=== PATIENT | male | born 1965 | race African-American/Black ===

== ENCOUNTER 2017-04-09 14:36 | Inpatient (IN) ==
[2017-04-09] MEDS ORDERED: SODIUM CHLORIDE 0.9% 500 ML IV STA (15:04)
[2017-04-09] MEDS ORDERED: ONDANSETRON 4 MG/2 ML VIAL IV STA ×2 (15:08→17:29)
[2017-04-09] MEDS ORDERED: HYDROmorphone 2 MG/1 ML VIAL IV STA ×2 (15:08→17:29)
[2017-04-09] MEDS ORDERED: HYDROmorphone 2 MG/1 ML VIAL ONE ×2 (15:12→17:16)
[2017-04-09] MEDS ORDERED: ONDANSETRON 4 MG/2 ML VIAL ONE ×2 (15:12→17:15)
[2017-04-09 15:33] LABS: Basophils % 0.6 % (0.0-0.8); Eosinophils # 0.1 10*3/uL (0.0-0.87); Eosinophils % 1.4 % (0.00-10.9); Hematocrit 33.9 VOL% (42.0-52.0); Hemoglobin 11.6 GM/DL (14.0-18.0); Immature Granulocytes % 0.2 %; Immature Granulocytes Absolute 0.01 #; Lymphocytes # 0.6 10*3/uL (1.4-4.0); Lymphocytes % 9.1 % (21.2-54.2); Mean Corpuscular HGB Conc 34.2 GM/DL (32-36); Mean Corpuscular Hemoglobin 32 PG (27-34); Mean Corpuscular Volume 94.7 FL (87-102); Mean Platelet Volume 9.9 FL (9.6-12.0); Monocytes # 0.5 10*3/uL (0.11-0.8); Monocytes % 7.9 % (1.7-12.7); Neutrophils # 5.1 10*3/uL (1.4-7.4); Neutrophils % 80.8 % (38.7-73.9); Platelet Count 169 T/CUMM (130-400); Red Blood Count 3.58 MC/CUMM (3.8-5.5); Red Cell Distribution Width 17.7 % (9.3-17.3); White Blood Count 6.4 T/CUMM (4-12)
[2017-04-09 16:27] LABS: Albumin 3.5 G/DL (3.4-5.0); Bilirubin,Total 0.9 MG/DL (0.2-1.0); Total Protein 7.2 G/DL (6.4-8.3)
[2017-04-09 16:28] LABS: Osmolality,Calculated 281.2 MOS/KG (273-304); Potassium 2.8 MMOL/L (3.5-5.1)
[2017-04-09] MEDS ORDERED: CALCIUM ACETATE 667 MG CAPSULE PO SCH (18:35)
[2017-04-09] MEDS ORDERED: POTASSIUM CHLORIDE 20 MEQ TABLET PO ONE (18:35)
[2017-04-09] MEDS ORDERED: GLUCAGON 1 MG VIAL IM PRN (18:35)
[2017-04-09] MEDS ORDERED: POTASSIUM CHLORIDE 20 MEQ TABLET PO PRN (18:35)
[2017-04-09] MEDS ORDERED: DEXTROSE 50% 25 GM/50 ML VIAL IV PRN (18:35)
[2017-04-09] MEDS: HYDROmorphone 2 MG/1 ML VIAL IV PRN (20:55)
[2017-04-09] MEDS: INSULIN LISPRO 100 UNIT/ML SUBCUT SCH (20:58)
[2017-04-09] MEDS: AMIODARONE 200 MG TABLET PO SCH (21:03)
[2017-04-09] MEDS: INSULIN GLARGINE 100 UNIT/ML SUBCUT SCH (21:03)
[2017-04-09] MEDS: LOVASTATIN 20 MG TABLET PO SCH (21:03)
[2017-04-10] MEDS: ONDANSETRON 4 MG/2 ML VIAL IV PRN (05:17)
[2017-04-10] MEDS: ACETAMINOPHEN 325 MG TABLET PO PRN (05:18)
[2017-04-10] MEDS: LEVOTHYROXINE 100 MCG TABLET PO SCH (05:28)
[2017-04-10] MEDS: cefTRIAXone 1,000 MG in SYRINGE 1 EACH IV SCH (05:29)
[2017-04-10 06:33] LABS: Basophils % 0.2 % (0.0-0.8); Eosinophils # 0.1 10*3/uL (0.0-0.87); Eosinophils % 0.5 % (0.00-10.9); Hematocrit 38.6 VOL% (42.0-52.0); Hemoglobin 12.7 GM/DL (14.0-18.0); Immature Granulocytes % 0.3 %; Immature Granulocytes Absolute 0.03 #; Lymphocytes # 0.3 10*3/uL (1.4-4.0); Lymphocytes % 2.4 % (21.2-54.2); Mean Corpuscular HGB Conc 32.9 GM/DL (32-36); Mean Corpuscular Hemoglobin 32 PG (27-34); Mean Corpuscular Volume 97.7 FL (87-102); Mean Platelet Volume 10.1 FL (9.6-12.0); Monocytes # 0.6 10*3/uL (0.11-0.8); Monocytes % 5.8 % (1.7-12.7); Neutrophils # 9.4 10*3/uL (1.4-7.4); Neutrophils % 90.8 % (38.7-73.9); Platelet Count 209 T/CUMM (130-400); Red Blood Count 3.95 MC/CUMM (3.8-5.5); Red Cell Distribution Width 17.7 % (9.3-17.3); White Blood Count 10.4 T/CUMM (4-12)
[2017-04-10 07:03] LABS: Calcium 8.3 MG/DL (8.5-10.1); Osmolality,Calculated 279.1 MOS/KG (273-304); Potassium 4.1 MMOL/L (3.5-5.1)
[2017-04-10 07:54] LABS: Hypochromasia 1+; Lymphocytes 2 % (20-55); Platelet Estimate Adequate; Segmented Neutrophils 92 % (50-85); Total Cells Counted 100
[2017-04-10 07:55] LABS: Microcytosis Slight
[2017-04-10] MEDS: INSULIN LISPRO 100 UNIT/ML SUBCUT SCH ×4 (09:07→20:47)
[2017-04-10] MEDS: HYDROmorphone 2 MG/1 ML VIAL IV PRN ×3 (09:12→18:46)
[2017-04-10] MEDS: INSULIN GLARGINE 100 UNIT/ML SUBCUT SCH ×2 (10:27→20:49)
[2017-04-10] MEDS: CALCIUM ACETATE 667 MG CAPSULE PO SCH ×3 (10:27→17:37)
[2017-04-10] MEDS: metroNIDAZOLE INJ 500 MG in PREMIX 1 EACH IV SCH ×2 (11:21→18:20)
[2017-04-10] MEDS ORDERED: DEXTROSE 5% NACL 0.45% 1,000 ML IV SCH (16:00)
[2017-04-10] MEDS: AMIODARONE 200 MG TABLET PO SCH ×2 (17:37→20:48)
[2017-04-10] MEDS: RIVAROXABAN 20 MG TABLET PO SCH (17:37)
[2017-04-10] MEDS: ALLOPURINOL 100 MG TABLET PO SCH (17:38)
[2017-04-10 18:32] LABS: Hepatitis A Ab IgM Quant 0.05 Index; Hepatitis A Ab IgM Result Negative (Negative); Hepatitis B Core IgM Quant 0.11 Index; Hepatitis B Core IgM Result Negative (Negative); Hepatitis B Surface Ag Quant < 0.10 Index; Hepatitis B Surface Ag Result Negative (Negative); Hepatitis C Virus Ab Quant 0.09 Index; Hepatitis C Virus Ab Result Negative (Negative)
[2017-04-10] MEDS: LOVASTATIN 20 MG TABLET PO SCH (20:49)
[2017-04-11] MEDS: metroNIDAZOLE INJ 500 MG in PREMIX 1 EACH IV SCH ×2 (03:09→16:03)
[2017-04-11] MEDS: HYDROmorphone 2 MG/1 ML VIAL IV PRN ×3 (03:49→20:08)
[2017-04-11] MEDS: cefTRIAXone 1,000 MG in SYRINGE 1 EACH IV SCH (05:13)
[2017-04-11] MEDS: LEVOTHYROXINE 100 MCG TABLET PO SCH (05:15)
[2017-04-11 05:49] LABS: Basophils % 0.3 % (0.0-0.8); Eosinophils # 0.1 10*3/uL (0.0-0.87); Eosinophils % 0.6 % (0.00-10.9); Hematocrit 33.6 VOL% (42.0-52.0); Immature Granulocytes % 0.7 %; Immature Granulocytes Absolute 0.07 #; Lymphocytes # 0.4 10*3/uL (1.4-4.0); Lymphocytes % 3.8 % (21.2-54.2); Mean Corpuscular HGB Conc 32.7 GM/DL (32-36); Mean Corpuscular Hemoglobin 32 PG (27-34); Mean Corpuscular Volume 97.4 FL (87-102); Mean Platelet Volume 10.3 FL (9.6-12.0); Monocytes # 0.9 10*3/uL (0.11-0.8); Neutrophils # 9.3 10*3/uL (1.4-7.4); Neutrophils % 86.6 % (38.7-73.9); Red Blood Count 3.45 MC/CUMM (3.8-5.5); Red Cell Distribution Width 17.8 % (9.3-17.3); White Blood Count 10.7 T/CUMM (4-12)
[2017-04-11 05:50] LABS: Platelet Count 166 T/CUMM (130-400)
[2017-04-11 06:14] LABS: Eosinophils 2 % (0-10); Hypochromasia 1+; Lymphocytes 2 % (20-55); Platelet Estimate Decreased; Segmented Neutrophils 87 % (50-85); Total Cells Counted 100
[2017-04-11 06:16] LABS: Calcium 7.4 MG/DL (8.5-10.1); Potassium 4.4 MMOL/L (3.5-5.1)
[2017-04-11] MEDS: INSULIN LISPRO 100 UNIT/ML SUBCUT SCH ×4 (08:46→20:06)
[2017-04-11] MEDS: CALCIUM ACETATE 667 MG CAPSULE PO SCH ×3 (08:47→16:03)
[2017-04-11] MEDS: AMIODARONE 200 MG TABLET PO SCH ×2 (08:47→20:08)
[2017-04-11] MEDS: RIVAROXABAN 20 MG TABLET PO SCH (08:48)
[2017-04-11] MEDS: POLYETHYLENE GLYCOL POWDER 17 GM PACK PO SCH (08:48)
[2017-04-11] MEDS: ALLOPURINOL 100 MG TABLET PO SCH (08:48)
[2017-04-11] MEDS: INSULIN GLARGINE 100 UNIT/ML SUBCUT SCH ×2 (08:48→20:06)
[2017-04-11] MEDS ORDERED: HEPARIN 10,000 UNIT/10 ML VIAL IV PRN (14:55)
[2017-04-11] MEDS: LOVASTATIN 20 MG TABLET PO SCH (20:07)
[2017-04-12] MEDS: ACETAMINOPHEN 325 MG TABLET PO PRN (00:03)
[2017-04-12] MEDS: metroNIDAZOLE INJ 500 MG in PREMIX 1 EACH IV SCH ×3 (00:03→16:18)
[2017-04-12] MEDS: HYDROmorphone 2 MG/1 ML VIAL IV PRN ×4 (01:22→21:51)
[2017-04-12 02:56] LABS: Basophils % 0.4 % (0.0-0.8); Eosinophils % 0.4 % (0.00-10.9); Hematocrit 32.7 VOL% (42.0-52.0); Hemoglobin 10.7 GM/DL (14.0-18.0); Immature Granulocytes % 0.9 %; Immature Granulocytes Absolute 0.08 #; Lymphocytes # 0.3 10*3/uL (1.4-4.0); Lymphocytes % 3.2 % (21.2-54.2); Mean Corpuscular HGB Conc 32.7 GM/DL (32-36); Mean Corpuscular Hemoglobin 32 PG (27-34); Mean Corpuscular Volume 96.5 FL (87-102); Mean Platelet Volume 9.9 FL (9.6-12.0); Monocytes # 0.9 10*3/uL (0.11-0.8); Neutrophils # 7.2 10*3/uL (1.4-7.4); Neutrophils % 84.1 % (38.7-73.9); Platelet Count 148 T/CUMM (130-400); Red Blood Count 3.39 MC/CUMM (3.8-5.5); Red Cell Distribution Width 17.6 % (9.3-17.3); White Blood Count 8.5 T/CUMM (4-12)
[2017-04-12 03:17] LABS: Calcium 7.8 MG/DL (8.5-10.1); Osmolality,Calculated 280.5 MOS/KG (273-304)
[2017-04-12 03:57] LABS: Band Neutrophils 3 % (0-10); Lymphocytes 1 % (20-55); Myelocytes 2 %; Nucleated Red Blood Cells 1 (0-5); Segmented Neutrophils 91 % (50-85); Total Cells Counted 100
[2017-04-12 03:58] LABS: Anisocytosis 1+; Platelet Estimate Normal
[2017-04-12] MEDS: LEVOTHYROXINE 100 MCG TABLET PO SCH (05:59)
[2017-04-12] MEDS: cefTRIAXone 1,000 MG in SYRINGE 1 EACH IV SCH (06:00)
[2017-04-12] MEDS: AMIODARONE 200 MG TABLET PO SCH ×2 (08:57→20:13)
[2017-04-12] MEDS: INSULIN LISPRO 100 UNIT/ML SUBCUT SCH ×4 (08:57→20:52)
[2017-04-12] MEDS: CALCIUM ACETATE 667 MG CAPSULE PO SCH ×3 (08:57→16:20)
[2017-04-12] MEDS: ALLOPURINOL 100 MG TABLET PO SCH (08:57)
[2017-04-12] MEDS: RIVAROXABAN 20 MG TABLET PO SCH (08:58)
[2017-04-12] MEDS: INSULIN GLARGINE 100 UNIT/ML SUBCUT SCH ×2 (08:58→20:53)
[2017-04-12] MEDS: ONDANSETRON 4 MG/2 ML VIAL IV PRN (16:16)
[2017-04-12] MEDS: LOVASTATIN 20 MG TABLET PO SCH (20:53)
[2017-04-13] MEDS: metroNIDAZOLE INJ 500 MG in PREMIX 1 EACH IV SCH ×3 (00:29→16:48)
[2017-04-13] MEDS: HYDROmorphone 2 MG/1 ML VIAL IV PRN ×4 (03:56→23:11)
[2017-04-13] MEDS: cefTRIAXone 1,000 MG in SYRINGE 1 EACH IV SCH (06:05)
[2017-04-13] MEDS: LEVOTHYROXINE 100 MCG TABLET PO SCH (06:05)
[2017-04-13] MEDS: CALCIUM ACETATE 667 MG CAPSULE PO SCH ×3 (08:36→16:48)
[2017-04-13] MEDS: INSULIN LISPRO 100 UNIT/ML SUBCUT SCH ×4 (08:37→21:00)
[2017-04-13] MEDS: INSULIN GLARGINE 100 UNIT/ML SUBCUT SCH ×2 (08:37→20:59)
[2017-04-13] MEDS: RIVAROXABAN 20 MG TABLET PO SCH (08:37)
[2017-04-13] MEDS: ALLOPURINOL 100 MG TABLET PO SCH (08:37)
[2017-04-13] MEDS: AMIODARONE 200 MG TABLET PO SCH ×2 (08:37→20:59)
[2017-04-13] MEDS: POLYETHYLENE GLYCOL POWDER 17 GM PACK PO SCH (11:31)
[2017-04-13] MEDS: LOVASTATIN 20 MG TABLET PO SCH (20:58)
[2017-04-14] MEDS: metroNIDAZOLE INJ 500 MG in PREMIX 1 EACH IV SCH ×2 (00:38→08:03)
[2017-04-14] MEDS: cefTRIAXone 1,000 MG in SYRINGE 1 EACH IV SCH (05:46)
[2017-04-14] MEDS: LEVOTHYROXINE 100 MCG TABLET PO SCH (05:47)
[2017-04-14 06:07] LABS: Basophils % 0.7 % (0.0-0.8); Eosinophils # 0.2 10*3/uL (0.0-0.87); Hematocrit 33.2 VOL% (42.0-52.0); Immature Granulocytes % 0.7 %; Immature Granulocytes Absolute 0.04 #; Lymphocytes # 0.5 10*3/uL (1.4-4.0); Mean Corpuscular HGB Conc 33.1 GM/DL (32-36); Mean Corpuscular Hemoglobin 32 PG (27-34); Mean Corpuscular Volume 95.7 FL (87-102); Mean Platelet Volume 10.3 FL (9.6-12.0); Monocytes # 0.8 10*3/uL (0.11-0.8); Monocytes % 14.8 % (1.7-12.7); Neutrophils # 4.1 10*3/uL (1.4-7.4); Neutrophils % 71.8 % (38.7-73.9); Platelet Count 173 T/CUMM (130-400); Red Blood Count 3.47 MC/CUMM (3.8-5.5); Red Cell Distribution Width 17.2 % (9.3-17.3); White Blood Count 5.7 T/CUMM (4-12)
[2017-04-14 06:39] LABS: Calcium 8.4 MG/DL (8.5-10.1); Magnesium 2.1 MG/DL (1.8-2.4); Osmolality,Calculated 281.7 MOS/KG (273-304); Potassium 3.6 MMOL/L (3.5-5.1)
[2017-04-14] MEDS: INSULIN LISPRO 100 UNIT/ML SUBCUT SCH ×4 (07:48→21:41)
[2017-04-14] MEDS: RIVAROXABAN 20 MG TABLET PO SCH ×2 (07:50→09:06)
[2017-04-14] MEDS: AMIODARONE 200 MG TABLET PO SCH ×3 (07:51→21:41)
[2017-04-14] MEDS: CALCIUM ACETATE 667 MG CAPSULE PO SCH ×4 (07:51→16:45)
[2017-04-14] MEDS: ALLOPURINOL 100 MG TABLET PO SCH ×2 (07:52→09:06)
[2017-04-14] MEDS ORDERED: AMOXICILLIN/CLAV 875 MG TABLET PO SCH (14:00)
[2017-04-14] MEDS ORDERED: AMOXICILLIN/CLAV 500 MG TABLET PO SCH (14:00)
[2017-04-14] MEDS: INSULIN GLARGINE 100 UNIT/ML SUBCUT SCH ×2 (14:28→21:42)
[2017-04-14] MEDS: HYDROmorphone 2 MG/1 ML VIAL IV PRN ×2 (16:55→21:46)
[2017-04-14] MEDS: LOVASTATIN 20 MG TABLET PO SCH (21:41)
[2017-04-15] MEDS: LEVOTHYROXINE 100 MCG TABLET PO SCH (06:27)
[2017-04-15] MEDS: CALCIUM ACETATE 667 MG CAPSULE PO SCH ×2 (08:39→12:16)
[2017-04-15] MEDS: AMIODARONE 200 MG TABLET PO SCH (08:39)
[2017-04-15] MEDS: ALLOPURINOL 100 MG TABLET PO SCH (08:39)
[2017-04-15] MEDS: RIVAROXABAN 20 MG TABLET PO SCH (08:39)
[2017-04-15] MEDS: INSULIN GLARGINE 100 UNIT/ML SUBCUT SCH (08:40)
[2017-04-15] MEDS: INSULIN LISPRO 100 UNIT/ML SUBCUT SCH ×2 (08:40→12:16)
[2017-04-15] MEDS: POLYETHYLENE GLYCOL POWDER 17 GM PACK PO SCH (08:41)
[2017-04-15 11:06] VITALS: BP 126/64
== END 2017-04-15 12:45 | disposition home or self-care (01) | DRG 393 ==
LOC: EDBD → EDUNIT# → N.ED 14:36 → N.EDINP 17:02 → SUATTDRO 17:02 → N.EDINP 18:40 → N.4E 18:56
PROVIDERS: ADMIT Internal Medicine; ATTEND Internal Medicine

== ENCOUNTER 2017-04-29 15:44 | Inpatient (IN) ==
[~2017-04-29 15:44] MED LIST: LEVOFLOXACIN INJ 500 MG in PREMIX 1 EACH IV ONE
[2017-04-29] MEDS ORDERED: PANTOPRAZOLE 40 MG VIAL IV STA (16:39)
[2017-04-29] MEDS ORDERED: PANTOPRAZOLE 40 MG VIAL IV ONE (17:44)
[2017-04-29] MEDS ORDERED: ONDANSETRON 4 MG/2 ML VIAL ONE (17:55)
[2017-04-29] MEDS ORDERED: ONDANSETRON 4 MG/2 ML VIAL IV STA (17:57)
[2017-04-29 18:02] LABS: Basophils # 0.1 10*3/uL (0.0-0.2); Basophils % 0.9 % (0.0-0.8); Eosinophils # 0.1 10*3/uL (0.0-0.87); Eosinophils % 1.8 % (0.00-10.9); Hemoglobin 10.6 GM/DL (14.0-18.0); Immature Granulocytes % 0.4 %; Immature Granulocytes Absolute 0.02 #; Lymphocytes # 0.6 10*3/uL (1.4-4.0); Lymphocytes % 11.2 % (21.2-54.2); Mean Corpuscular HGB Conc 33.1 GM/DL (32-36); Mean Corpuscular Hemoglobin 32 PG (27-34); Mean Corpuscular Volume 95.5 FL (87-102); Mean Platelet Volume 10.1 FL (9.6-12.0); Monocytes # 0.7 10*3/uL (0.11-0.8); Monocytes % 12.3 % (1.7-12.7); Neutrophils % 73.4 % (38.7-73.9); Platelet Count 160 T/CUMM (130-400); Red Blood Count 3.35 MC/CUMM (3.8-5.5); Red Cell Distribution Width 18.4 % (9.3-17.3); White Blood Count 5.5 T/CUMM (4-12)
[2017-04-29 18:08] LABS: INR 1.4; PT Patient Result 14.2 SECS
[2017-04-29 18:30] LABS: Bilirubin,Total 0.4 MG/DL (0.2-1.0); Magnesium 2.1 MG/DL (1.8-2.4); Osmolality,Calculated 293.5 MOS/KG (273-304); Potassium 4.5 MMOL/L (3.5-5.1); Total Protein 7.1 G/DL (6.4-8.3)
[2017-04-29] MEDS ORDERED: DEXTROSE 50% 25 GM/50 ML VIAL IV PRN (23:00)
[2017-04-29] MEDS ORDERED: GLUCAGON 1 MG VIAL IM PRN (23:00)
[2017-04-29] MEDS ORDERED: ONDANSETRON 4 MG/2 ML VIAL IV PRN (23:00)
[2017-04-30] MEDS: SODIUM CHLORIDE 0.9% 1,000 ML IV SCH ×2 (00:10→12:22)
[2017-04-30] MEDS: INSULIN REGULAR 100 UNIT/ML SUBCUT SCH ×5 (00:10→23:25)
[2017-04-30] MEDS: metroNIDAZOLE INJ 500 MG in PREMIX 1 EACH IV SCH ×3 (00:48→18:00)
[2017-04-30 01:26] LABS: Hematocrit 28.5 VOL% (42.0-52.0); Hemoglobin 9.2 GM/DL (14.0-18.0)
[2017-04-30 02:11] LABS: Free T4 (Free Thyroxine) 1.55 NG/DL (0.76-1.46); Thyroid Stimulating Hormone 6.19 uIU/ml (0.358-3.74)
[2017-04-30 06:14] LABS: Hematocrit 28.5 VOL% (42.0-52.0); Hemoglobin 9.4 GM/DL (14.0-18.0)
[2017-04-30] MEDS: PANTOPRAZOLE 40 MG VIAL IV SCH (08:28)
[2017-04-30] MEDS ORDERED: LEVOFLOXACIN INJ 500 MG in PREMIX 1 EACH IV ONE (09:00)
[2017-04-30 13:27] LABS: Hematocrit 29.1 VOL% (42.0-52.0); Hemoglobin 9.6 GM/DL (14.0-18.0)
[2017-04-30] MEDS: POLYETHYLENE GLYCOL POWDER 17 GM PACK PO SCH ×2 (18:00→23:25)
[2017-04-30 18:04] LABS: Hematocrit 29.4 VOL% (42.0-52.0); Hemoglobin 9.6 GM/DL (14.0-18.0)
[2017-05-01] MEDS: metroNIDAZOLE INJ 500 MG in PREMIX 1 EACH IV SCH ×3 (01:43→17:04)
[2017-05-01] MEDS: SODIUM CHLORIDE 0.9% 1,000 ML IV SCH ×2 (01:50→16:58)
[2017-05-01 05:43] LABS: Basophils % 0.7 % (0.0-0.8); Eosinophils # 0.3 10*3/uL (0.0-0.87); Eosinophils % 6.8 % (0.00-10.9); Immature Granulocytes % 0.7 %; Immature Granulocytes Absolute 0.03 #; Lymphocytes # 0.6 10*3/uL (1.4-4.0); Lymphocytes % 12.7 % (21.2-54.2); Mean Corpuscular HGB Conc 32.1 GM/DL (32-36); Mean Corpuscular Hemoglobin 31 PG (27-34); Mean Corpuscular Volume 95.6 FL (87-102); Mean Platelet Volume 10.1 FL (9.6-12.0); Monocytes # 0.7 10*3/uL (0.11-0.8); Monocytes % 15.9 % (1.7-12.7); Neutrophils # 2.8 10*3/uL (1.4-7.4); Neutrophils % 63.2 % (38.7-73.9); Platelet Count 148 T/CUMM (130-400); Red Blood Count 2.93 MC/CUMM (3.8-5.5); Red Cell Distribution Width 17.7 % (9.3-17.3); White Blood Count 4.4 T/CUMM (4-12)
[2017-05-01 06:36] LABS: Eosinophils 1 % (0-10); Lymphocytes 24 % (20-55); Platelet Estimate Normal; Segmented Neutrophils 69 % (50-85); Total Cells Counted 100
[2017-05-01] MEDS ORDERED: POLYETHYLENE GLYCOL POWDER 17 GM PACK PO SCH (09:00)
[2017-05-01] MEDS: PANTOPRAZOLE 40 MG VIAL IV SCH (09:11)
[2017-05-01] MEDS: INSULIN REGULAR 100 UNIT/ML SUBCUT SCH ×3 (09:11→15:43)
[2017-05-01 09:30] LABS: Sedimentation Rate-Westergren 109 MM/HR (0-20)
[2017-05-01 11:59] VITALS: BP 92/56
[2017-05-02] MEDS ORDERED: LEVOFLOXACIN INJ 250 MG in PREMIX 1 EACH IV SCH (09:00)
== END 2017-05-01 18:03 | disposition home or self-care (01) | DRG 393 ==
LOC: N.ED 15:44 → N.EDINP 19:51 → SUPCPDRO 19:51 → N.CC 22:17 → N.5E 04-30 21:28
PROVIDERS: ADMIT Internal Medicine; ATTEND Internal Medicine

== ENCOUNTER 2019-05-21 09:49 | Inpatient (IN) ==
[2019-05-21] MEDS ORDERED: PANTOPRAZOLE 40 MG VIAL IV STA (10:25)
[2019-05-21] MEDS ORDERED: ONDANSETRON 4 MG/2 ML VIAL IV STA (10:25)
[2019-05-21] MEDS ORDERED: MORPHINE 4 MG/1 ML VIAL IV STA (10:25)
[2019-05-21 11:22] LABS: Basophils % 0.4 % (0.0-0.8); Eosinophils # 0.1 10*3/uL (0.0-0.87); Eosinophils % 1.1 % (0.00-10.9); Hematocrit 34.5 VOL% (42.0-52.0); Hemoglobin 11.4 GM/DL (14.0-18.0); Immature Granulocytes % 0.7 %; Immature Granulocytes Absolute 0.04 #; Lymphocytes # 0.4 10*3/uL (1.4-4.0); Lymphocytes % 7.7 % (21.2-54.2); Mean Corpuscular Volume 101.2 FL (87-102); Mean Platelet Volume 10.9 FL (9.6-12.0); Monocytes % 6.9 % (1.7-12.7); Neutrophils % 83.2 % (38.7-73.9); Platelet Count 116 T/CUMM (130-400); Red Blood Count 3.41 MC/CUMM (3.8-5.5); Red Cell Distribution Width 15.3 % (9.3-17.3); White Blood Count 5.5 T/CUMM (4-12)
[2019-05-21 11:45] LABS: Albumin 3.4 G/DL (3.4-5.0); Bilirubin,Total 0.5 MG/DL (0.2-1.0); Calcium 7.9 MG/DL (8.5-10.1); Osmolality,Calculated 298.7 MOS/KG (273-304); Total Protein 6.8 G/DL (6.4-8.3)
[2019-05-21] MEDS ORDERED: LIDOCAINE 2% VISCOUS 100 ML BOTTLE ONE (12:32)
[2019-05-21] MEDS ORDERED: ACETAMINOPHEN 325 MG TABLET PO PRN (13:34)
[2019-05-21] MEDS ORDERED: PIPERACILLIN/TAZOBACTAM 3,375 MG in SODIUM CHLORIDE 0.9% 100 ML IV SCH (14:00)
[2019-05-21 14:03] LABS: Risk Ratio 5.22; Thyroid Stimulating Hormone 8.17 uIU/ml (0.358-3.74); VLDL CHOLESTEROL 62.6 MG/DL
[2019-05-21] MEDS: HYDROmorphone 2 MG/1 ML VIAL IV PRN ×3 (15:41→23:10)
[2019-05-21] MEDS: PIPERACILLIN/TAZOBACTAM 3,375 MG in SODIUM CHLORIDE 0.9% 100 ML IV SCH (15:41)
[2019-05-21] MEDS: ENOXAPARIN 30 MG/0.3 ML SYRINGE SUBCUT SCH (15:41)
[2019-05-21] MEDS: ONDANSETRON 4 MG/2 ML VIAL IV PRN ×2 (15:43→19:41)
[2019-05-22] MEDS: HYDROmorphone 2 MG/1 ML VIAL IV PRN ×5 (02:45→21:54)
[2019-05-22] MEDS: PIPERACILLIN/TAZOBACTAM 3,375 MG in SODIUM CHLORIDE 0.9% 100 ML IV SCH ×2 (02:45→15:14)
[2019-05-22] MEDS: ONDANSETRON 4 MG/2 ML VIAL IV PRN (02:45)
[2019-05-22 06:25] LABS: Basophils % 0.4 % (0.0-0.8); Eosinophils # 0.1 10*3/uL (0.0-0.87); Eosinophils % 0.8 % (0.00-10.9); Hemoglobin 11.6 GM/DL (14.0-18.0); Immature Granulocytes % 0.5 %; Immature Granulocytes Absolute 0.04 #; Lymphocytes # 0.4 10*3/uL (1.4-4.0); Lymphocytes % 4.9 % (21.2-54.2); Mean Corpuscular HGB Conc 32.2 GM/DL (32-36); Mean Corpuscular Volume 102.3 FL (87-102); Mean Platelet Volume 11.1 FL (9.6-12.0); Monocytes % 6.8 % (1.7-12.7); Neutrophils % 86.6 % (38.7-73.9); Platelet Count 139 T/CUMM (130-400); Red Blood Count 3.52 MC/CUMM (3.8-5.5); Red Cell Distribution Width 15.3 % (9.3-17.3); White Blood Count 8.4 T/CUMM (4-12)
[2019-05-22 06:43] LABS: Calcium 8.7 MG/DL (8.5-10.1)
[2019-05-22 07:56] LABS: Anisocytosis 1+; Eosinophils 1 % (0-10); Lymphocytes 5 % (20-55); Platelet Estimate Adequate; Segmented Neutrophils 86 % (50-85); Total Cells Counted 100
[2019-05-22 07:57] LABS: Macrocytosis 1+
[2019-05-22] MEDS ORDERED: ZALEPLON 5 MG CAPSULE PO PRN (09:56)
[2019-05-22] MEDS: ENOXAPARIN 30 MG/0.3 ML SYRINGE SUBCUT SCH (15:14)
[2019-05-23] MEDS: HYDROmorphone 2 MG/1 ML VIAL IV PRN ×2 (01:24→05:42)
[2019-05-23] MEDS: PIPERACILLIN/TAZOBACTAM 3,375 MG in SODIUM CHLORIDE 0.9% 100 ML IV SCH ×2 (01:25→14:50)
[2019-05-23 05:14] LABS: Basophils % 0.5 % (0.0-0.8); Eosinophils # 0.2 10*3/uL (0.0-0.87); Eosinophils % 2.2 % (0.00-10.9); Hemoglobin 11.3 GM/DL (14.0-18.0); Immature Granulocytes % 0.4 %; Immature Granulocytes Absolute 0.03 #; Lymphocytes # 0.5 10*3/uL (1.4-4.0); Mean Corpuscular HGB Conc 32.3 GM/DL (32-36); Mean Corpuscular Volume 102.6 FL (87-102); Mean Platelet Volume 10.5 FL (9.6-12.0); Monocytes % 9.4 % (1.7-12.7); Neutrophils % 81.5 % (38.7-73.9); Platelet Count 121 T/CUMM (130-400); Red Blood Count 3.41 MC/CUMM (3.8-5.5); Red Cell Distribution Width 15.4 % (9.3-17.3); White Blood Count 7.7 T/CUMM (4-12)
[2019-05-23 05:52] LABS: Calcium 8.4 MG/DL (8.5-10.1); Osmolality,Calculated 302.5 MOS/KG (273-304)
[2019-05-23] MEDS: ENOXAPARIN 30 MG/0.3 ML SYRINGE SUBCUT SCH (14:51)
[2019-05-24] MEDS: PIPERACILLIN/TAZOBACTAM 3,375 MG in SODIUM CHLORIDE 0.9% 100 ML IV SCH ×2 (03:05→16:17)
[2019-05-24 07:51] LABS: Basophils # 0.1 10*3/uL (0.0-0.2); Basophils % 0.7 % (0.0-0.8); Eosinophils # 0.2 10*3/uL (0.0-0.87); Eosinophils % 2.8 % (0.00-10.9); Hematocrit 33.2 VOL% (42.0-52.0); Hemoglobin 10.7 GM/DL (14.0-18.0); Immature Granulocytes % 0.4 %; Immature Granulocytes Absolute 0.03 #; Lymphocytes # 0.8 10*3/uL (1.4-4.0); Lymphocytes % 11.8 % (21.2-54.2); Mean Corpuscular HGB Conc 32.2 GM/DL (32-36); Mean Corpuscular Volume 100.9 FL (87-102); Mean Platelet Volume 10.3 FL (9.6-12.0); Monocytes % 11.6 % (1.7-12.7); Neutrophils % 72.7 % (38.7-73.9); Platelet Count 143 T/CUMM (130-400); Red Blood Count 3.29 MC/CUMM (3.8-5.5); Red Cell Distribution Width 15.5 % (9.3-17.3); White Blood Count 7.1 T/CUMM (4-12)
[2019-05-24 08:16] LABS: Osmolality,Calculated 300.8 MOS/KG (273-304)
[2019-05-24] MEDS ORDERED: HEPARIN 1,000 UNIT/1 ML VIAL ONE ×2 (09:09→09:43)
[2019-05-24] MEDS ORDERED: DEXTROSE 50% 25 GM/50 ML VIAL IV PRN (10:48)
[2019-05-24] MEDS ORDERED: GLUCAGON 1 MG VIAL IM PRN (10:48)
[2019-05-24] MEDS: INSULIN LISPRO 100 UNIT/ML SUBCUT SCH ×3 (14:09→20:57)
[2019-05-24] MEDS: ENOXAPARIN 30 MG/0.3 ML SYRINGE SUBCUT SCH (16:17)
[2019-05-24] MEDS: HYDROmorphone 2 MG/1 ML VIAL IV PRN (20:58)
[2019-05-25] MEDS: PIPERACILLIN/TAZOBACTAM 3,375 MG in SODIUM CHLORIDE 0.9% 100 ML IV SCH ×2 (02:43→17:01)
[2019-05-25 06:26] LABS: Basophils # 0.1 10*3/uL (0.0-0.2); Basophils % 0.8 % (0.0-0.8); Eosinophils # 0.2 10*3/uL (0.0-0.87); Eosinophils % 2.8 % (0.00-10.9); Hematocrit 34.3 VOL% (42.0-52.0); Hemoglobin 10.9 GM/DL (14.0-18.0); Immature Granulocytes % 0.5 %; Immature Granulocytes Absolute 0.03 #; Lymphocytes # 0.7 10*3/uL (1.4-4.0); Lymphocytes % 11.6 % (21.2-54.2); Mean Corpuscular HGB Conc 31.8 GM/DL (32-36); Mean Corpuscular Volume 102.7 FL (87-102); Mean Platelet Volume 10.5 FL (9.6-12.0); Monocytes % 10.5 % (1.7-12.7); Neutrophils % 73.8 % (38.7-73.9); Platelet Count 136 T/CUMM (130-400); Red Blood Count 3.34 MC/CUMM (3.8-5.5); Red Cell Distribution Width 15.2 % (9.3-17.3); White Blood Count 6.4 T/CUMM (4-12)
[2019-05-25 06:52] LABS: Calcium 8.3 MG/DL (8.5-10.1); Osmolality,Calculated 291.8 MOS/KG (273-304)
[2019-05-25] MEDS: INSULIN LISPRO 100 UNIT/ML SUBCUT SCH ×4 (09:26→21:53)
[2019-05-25] MEDS: HYDROmorphone 2 MG/1 ML VIAL IV PRN ×3 (09:48→21:53)
[2019-05-25] MEDS: ENOXAPARIN 30 MG/0.3 ML SYRINGE SUBCUT SCH (17:01)
[2019-05-26] MEDS: PIPERACILLIN/TAZOBACTAM 3,375 MG in SODIUM CHLORIDE 0.9% 100 ML IV SCH (02:43)
[2019-05-26] MEDS: HYDROmorphone 2 MG/1 ML VIAL IV PRN ×3 (02:44→07:06)
[2019-05-26] MEDS: INSULIN LISPRO 100 UNIT/ML SUBCUT SCH (08:45)
[2019-05-26 10:04] VITALS: BP 110/64
== END 2019-05-26 11:18 | disposition home or self-care (01) | DRG 356 ==
LOC: EDUNIT# → EDBD → N.ED 09:49 → SUATTDRO 13:34 → N.EDINP 13:34 → N.5E 14:31
PROVIDERS: ADMIT Internal Medicine; ATTEND Internal Medicine Cardiovascular Disease